=== PATIENT | female | born 1995 | race Caucasian/White ===

== ENCOUNTER 2017-11-08 15:04 | Emergency (ER) | payer BC ==
[2017-11-08] MEDS ORDERED: NS 0.9% 1000 ML* 2,000 ML IV ONE (15:10)
--- NOTE | 2017-11-08 15:31 | ED ---
Complex/Multi-Sys Presentation - HPI Summary HPI Summary: 21 year old F presenting to [facility] after pt was a "CAT" call on PACU where pt was working, is accompanied by female coworker, complains of sharp left sided chest pain since this morning. Per Dr. Hauser, present at CAT call, pt had HR up to 170, and was hypertensive while at work. Symptoms aggravated by nothing. Symptoms alleviated by nothing. Patient reports hx enlarged thyroid (Grave's disease), hypertension, headache, shortness of breath, shakiness. Patient denies bilateral calf pain or hx DVT, PE. Patient has hx Grave's disease and was on treatment with presumed methimazole with her bench molder. She stopped her medication several weeks ago d/t hypothyroidism secondary to medication. Patient sees Dr. Rangel, bench molder at [facility], with whom patient is supposed to have follow up appointment on 11/21/17. LNMP 3 months ago. Patient takes control continuously. She is allergic to propanolol ( hives), states she can take metoprolol. Home Medications Medication Instructions Recorded Confirmed Type Levonorgestrel-Ethin Estradiol 1 tab PO DAILY 11/08/17 11/08/17 History [Marlissa-28 Tablet] - History Of Current Complaint Chief Complaint: EDGeneral Hx Obtained From: Patient, Other: - Dr. Hauser, after CAT call Onset/Duration: Sudden Onset, Lasting Hours - this morning, Still Present Timing: Constant Severity Currently: Moderate Severity Initially: Severe Character: Sharp Aggravating Factor(s): Nothing Alleviating Factor(s): Nothing Associated Signs And Symptoms: Positive: SOB, Chest Pain, Palpitations, Other - enlarged thyroid, hypertension, tachycardia, headache, shortness of breath, shakiness; NEGATIVE: bilateral calf pain Related History: Similar Episode/Diagnosed As: - hyperthyroidism - Allergies/Home Medications Allergies/Adverse Reactions: Allergies Allergy/AdvReac Type Severity Reaction Status Date / Time propanolol Allergy Hives Uncoded 11/08/17 15:05 Home Medications: Home Medications Levonorgestrel-Ethin Estradiol [Marlissa-28 Tablet] 1 tab PO DAILY 11/08/17 [ History Confirmed 11/08/17] PMH/Surg Hx/FS Hx/Imm Hx Previously Healthy: No Endocrine/Hematology History: Reports: Other Endocrine/Hematological Disorders - Grave's disease, HYPOthyrodism after RX for Grave's Cardiovascular History: Denies: Hx Deep Vein Thrombosis, Hx Embolism - Surgical History Surgery Procedure, Year, and Place: L hip surg for labral tear Infectious Disease History: No Infectious Disease History: Denies: Traveled Outside the [place] in Last 30 Days - Family History Known Family History: Positive: Other - POS: hypothyroidism, twin sister with Grave's disease; NEG: PE - Social History Occupation: Employed Full-time Alcohol Use: None Hx Substance Use: No Substance Use Type: Reports: None Hx Tobacco Use: No Smoking Status (MU): Never Smoked Tobacco Review of Systems Positive: Other - enlarged thyroid, HTN, shakiness Positive: Chest Pain - sharp, left sided Positive: Shortness Of Breath Gastrointestinal: Negative Musculoskeletal: Negative - bilateral calf pain Skin: Negative Positive: Headache Psychological: Normal All Other Systems Reviewed And Are Negative: Yes Physical Exam - Summary Physical Exam Summary: Appearance: Well-appearing, no pain distress, well-nourished, tachycardic, hypertensive on monitor Skin: Warm, color reflects adequate perfusion, dry Head: Normal Head/Face inspection, atraumatic Eyes: Conjunctiva clear ENT: Normal inspection Neck: Supple, no nodes, no JVD, palpable thyroid that is non-tender Respiratory: Lungs clear, normal breath sounds, no respiratory distress Cardio: Tachycardic, No murmur, pulses normal, brisk capillary refill Abdomen: Soft, nontender Bowel sounds: Present Musculoskeletal: Strength Intact/ROM intact, no calf tenderness, no edema. Psychological: Normal Neuro: Alert, muscle tone normal, no focal deficit Triage Information Reviewed: Yes Vital Signs On Initial Exam: Initial Vitals Temp Pulse Resp BP Pulse Ox 99.5 F 146 24 158/98 100 11/08/17 15:05 11/08/17 15:05 11/08/17 15:05 11/08/17 15:05 11/08/17 15:05 Vital Signs Reviewed: Yes Diagnostics - Vital Signs Vital Signs Temp Pulse Resp BP Pulse Ox 11/08/17 15:05 99.5 F 146 24 158/98 100 - Laboratory Result Diagrams: 11/08/17 15:46 11/08/17 15:46 Lab Statement: Any lab studies that have been ordered have been reviewed, and results considered in the medical decision making process. - EKG 1533 Cardiac Rate: Tachycardia - 119 BPM EKG Rhythm: Sinus Tachycardia ST Segment: Non-Specific Ectopy: None EKG Interpretation: Nml AV/IV CT, nml QTc, nml axis. No actue changes Re-Evaluation - Re-Evaluation First Eval Re-Evaluation Time: 15:43 Change: Improved Comment: Patient's heart rate is down to 119. Second Eval Re-Evaluation Time: 18:53 Change: Unchanged Comment: Patient feels fine and is agreeable to go home. She will be discharged with a work release note. Pt still tachycardic but feels much better and will start methimazole CARY. Complex Multi-Symp Course/Dx Course Of Treatment: Medications reviewed this visit. Allergies noted. Bloodwork obtained. Aware of lactic acid 2.6 at 1627. Pt noted with hyperthroidism on labs. TSH = 0. Patient given IV fluids in ED course. Spoke with Dr. Johnson, bench molder fashion artist at [facility] at 1712, who advises to re -start patient on thyroid medication. She will be discharged with a prescription for Tapazole 15mg qd and instructions to return to ER for new or worsening symptoms. - Diagnoses Differential Diagnoses/HQI/PQRI: Metabolic Abnormality, Other - SVT, afib Provider Diagnoses: Hyperthyroidism, Graves disease, Tachycardia, Hypertension Discharge - Sign-Out/Discharge Documenting (check all that apply): Patient Departure - Discharge - Discharge Plan Condition: Stable Disposition: HOME Prescriptions: Methimazole TAB* [Tapazole TAB*] 15 mg PO DAILY #90 tab Patient Education Materials: Hyperthyroidism (ED), Graves Disease (ED) Forms: *Work Release Referrals: employee [facility] [Z.BUSINESS, APPLICATION, OTHER] - Juan Carlos GONZALEZ,Sho Velásquez [Medical Doctor] - Additional Instructions: You are hyperthyroid today based on labs and your symptoms. We talked to Dr. Johnson, the bench molder covering for Dr. Phelan. He recommended that you restart your methimazole, and we have sent a RX for this to the [facility] pharmacy in [place], [place]. RETURN TO THE EMERGENCY DEPARTMENT FOR CHANGING OR WORSENING SYMPTOMS - Billing Disposition and Condition Condition: STABLE Disposition: Home
[2017-11-08 15:59] LABS: ABS Basophils 0.1 10^3/ul (0-0.2); ABS Eosinophils 0.1 10^3/ul (0-0.6); ABS Lymphocytes 2.3 10^3/ul (1.0-4.8); ABS Monocytes 0.9 10^3/ul (0-0.8); ABS Neutrophils 8.8 10^3/ul (1.5-7.7); ABS Nucleated RBC 0 10^3/ul; Eosinophil % 0.8 % (0-6); Hematocrit 40 % (35-47); Hemoglobin 13.2 g/dl (12.0-16.0); Lymphocyte % 18.5 % (25-47); Mean Corpuscular HGB Conc 33 g/dl (31-36); Mean Corpuscular Hemoglobin 29 pg (27-31); Mean Corpuscular Volume 87 fL (80-97); Mean Platelet Volume 7.1 um3 (7.4-10.4); Nucleated Red Blood Cells % 0.1; Platelet Count 343 10^3/ul (150-450); Red Blood Count 4.57 10^6/ul (4.00-5.40); Red Cell Distribution Width 13 % (10.5-15); White Blood Count 12.2 10^3/ul (3.5-10.8)
[2017-11-08 16:22] LABS: INR 0.86 (0.77-1.02)
[2017-11-08 19:11] VITALS: BP 144/104
== END 2017-11-08 19:11 | disposition home or self-care (01) ==
LOC: ED 15:04
DX: E05.00 Thyrotoxicosis with diffuse goiter without thyrotoxic crisis or storm (principal); R00.0 Tachycardia, unspecified; I10 Essential (primary) hypertension; Z86.718 Personal history of other venous thrombosis and embolism; Z86.711 Personal history of pulmonary embolism; Z79.899 Other long term (current) drug therapy
CPT/HCPCS: 36415; 80053; 83605; 84436; 84439; 84443; 84481; 84484; 84702; 85025; 85610; 86140; 93005; 96360; 96361; 99283

== ENCOUNTER 2018-05-21 09:27 | Emergency (ER) | payer BC, OTHER ==
[2018-05-21 10:16] LABS: ABS Basophils 0 10^3/ul (0-0.2); ABS Eosinophils 0.1 10^3/ul (0-0.6); ABS Lymphocytes 1.3 10^3/ul (1.0-4.8); ABS Monocytes 0.4 10^3/ul (0-0.8); ABS Neutrophils 9.2 10^3/ul (1.5-7.7); ABS Nucleated RBC 0 10^3/ul; Eosinophil % 0.5 %; Hematocrit 41 % (35-47); Hemoglobin 13.8 g/dl (12.0-16.0); Lymphocyte % 11.8 %; Mean Corpuscular HGB Conc 34 g/dl (31-36); Mean Corpuscular Hemoglobin 30 pg (27-31); Mean Corpuscular Volume 88 fL (80-97); Mean Platelet Volume 7.1 fL (7.4-10.4); Nucleated Red Blood Cells % 0; Platelet Count 355 10^3/ul (150-450); Red Blood Count 4.61 10^6/ul (4.00-5.40); Red Cell Distribution Width 12 % (10.5-15)
[2018-05-21 10:39] LABS: ALT 20 U/L (7-52); AST 24 U/L (13-39); Albumin 4.1 g/dL (3.2-5.2); Albumin/Globulin Ratio 1.2 (1-3); Alkaline Phosphatase 57 U/L (34-104); Anion Gap 8 mmol/L (2-11); BUN/Creatinine Ratio 12.8 (8-20); Blood Urea Nitrogen 10 mg/dL (6-24); CO2 Carbon Dioxide 25 mmol/L (22-32); Calcium 9.1 mg/dL (8.6-10.3); Chloride 104 mmol/L (101-111); EGFR African American 109.8 (>60); EGFR Non-African American 90.7 (>60); Globulin 3.3 g/dL (2-4); Glucose 85 mg/dL (70-100); Potassium 3.7 mmol/L (3.5-5.0); Sodium 137 mmol/L (135-145); Total Protein 7.4 g/dL (6.4-8.9)
[2018-05-21 10:44] LABS: HCG Pregnancy < 0.60 mIU/mL
--- NOTE | 2018-05-21 11:07 | ED ---
- HPI Summary HPI Summary: [id number] patient presents with injury to right hand prior to arrival. She works in the OR and during an ortho case, she accidentally cut her right thenar eminence with a bone saw after use on pt. This went to through 2 sets of gloves. She did have minor bleeding and cleaned her wound with Betadine immediately. Bleeding has stopped. She is unsure of the patient's HIV /hepatitis C status but has the patient's name *(will identify medical record number). This patient has no history of hepatitis or HIV and hepatitis B vaccine is up-to-date. She reports tetanus is also up-to-date. Hand itself is a minor injury she does not report any pain, numbness, tingling, weakness. She is here for evaluation based on protocol of exposure. Periods have been normal. Takes oral control. Low risk of . - History of Current Complaint Chief Complaint: EDExtremityUpper Stated Complaint: LAC ON RIGHT HAND/EXPOSURE Time Seen by Provider: 05/21/18 09:56 PMH/Surg Hx/FS Hx/Imm Hx Previously Healthy: Yes Endocrine/Hematology History: Reports: Other Endocrine/Hematological Disorders - Grave's disease, HYPOthyrodism after RX for Grave's Cardiovascular History: Denies: Hx Deep Vein Thrombosis, Hx Embolism Sensory History: Reports: Hx Contacts or Glasses Opthamlomology History: Reports: Hx Contacts or Glasses - Surgical History Surgery Procedure, Year, and Place: L hip surg for labral tear - Immunization History Immunizations Up to Date: Yes Infectious Disease History: No Infectious Disease History: Denies: Hx of Known/Suspected MRSA, Traveled Outside the [place] in Last 30 Days - Family History Known Family History: Positive: Other - POS: hypothyroidism, twin sister with Grave's disease; NEG: PE - Social History Occupation: Employed Full-time Alcohol Use: None Hx Substance Use: No Substance Use Type: Reports: None Hx Tobacco Use: No Smoking Status (MU): Never Smoked Tobacco Review of Systems Constitutional: Negative Positive: no symptoms reported Musculoskeletal: Negative Skin: Other - superficial laceration Neurological: Negative Psychological: Normal All Other Systems Reviewed And Are Negative: Yes Physical Exam Triage Information Reviewed: Yes Vital Signs On Initial Exam: Initial Vitals Temp Pulse Resp BP Pulse Ox 98.0 F 80 14 143/99 100 05/21/18 09:28 05/21/18 09:28 05/21/18 09:28 05/21/18 09:28 05/21/18 09:28 Vital Signs Reviewed: Yes Appearance: Positive: Well-Appearing, No Pain Distress, Well-Nourished Skin: Positive: Warm, Skin Color Reflects Adequate Perfusion, Dry - linear superficial laceration 3cm x 1.5mm over Rt thenar eminence - no active bleeding - no subcutaneous tissue observed - clean Head/Face: Positive: Normal Head/Face Inspection Eyes: Positive: EOMI ENT: Positive: Hearing grossly normal Respiratory/Lung Sounds: Positive: Breath Sounds Present Cardiovascular: Positive: Pulses are Symmetrical in both Upper and Lower Extremities Musculoskeletal: Positive: Normal, Strength/ROM Intact Neurological: Positive: Normal, Sensory/Motor Intact, Alert, Oriented to Person Place, Time, CN Intact II-III Psychiatric: Positive: Normal Diagnostics - Vital Signs Vital Signs Temp Pulse Resp BP Pulse Ox 05/21/18 09:28 98.0 F 80 14 143/99 100 - Laboratory Lab Results: Lab Results 05/21/18 05/21/18 Range/Units 10:07 10:07 WBC 11.0 H (3.5-10.8) 10^3/ul RBC 4.61 (4.00-5.40) 10^6/ul Hgb 13.8 (12.0-16.0) g/dl Hct 41 (35-47) % MCV 88 (80-97) fL MCH 30 (27-31) pg MCHC 34 (31-36) g/dl RDW 12 (10.5-15) % Plt Count 355 (150-450) 10^3/ul MPV 7.1 L (7.4-10.4) fL Neut % (Auto) 83.6 % Lymph % (Auto) 11.8 % [place] % (Auto) 3.7 % Eos % (Auto) 0.5 % Baso % (Auto) 0.4 % Absolute Neuts (auto) 9.2 H (1.5-7.7) 10^3/ul Absolute Lymphs (auto) 1.3 (1.0-4.8) 10^3/ul Absolute Monos (auto) 0.4 (0-0.8) 10^3/ul Absolute Eos (auto) 0.1 (0-0.6) 10^3/ul Absolute Basos (auto) 0 (0-0.2) 10^3/ul Absolute Nucleated RBC 0 10^3/ul Nucleated RBC % 0 Sodium 137 (135-145) mmol/L Potassium 3.7 (3.5-5.0) mmol/L Chloride 104 (101-111) mmol/L Carbon Dioxide 25 (22-32) mmol/L Anion Gap 8 (2-11) mmol/L BUN 10 (6-24) mg/dL Creatinine 0.78 (0.51-0.95) mg/dL Est GFR ( Amer) 109.8 (>60) Est GFR (Non-Af Amer) 90.7 (>60) BUN/Creatinine Ratio 12.8 (8-20) Glucose 85 (70-100) mg/dL Calcium 9.1 (8.6-10.3) mg/dL Total Bilirubin 1.00 (0.2-1.0) mg/dL AST 24 (13-39) U/L ALT 20 (7-52) U/L Alkaline Phosphatase 57 (34-104) U/L Total Protein 7.4 (6.4-8.9) g/dL Albumin 4.1 (3.2-5.2) g/dL Globulin 3.3 (2-4) g/dL Albumin/Globulin Ratio 1.2 (1-3) Beta HCG, Quant < 0.60 mIU/mL Result Diagrams: 05/21/18 10:07 05/21/18 10:07 Lab Statement: Any lab studies that have been ordered have been reviewed, and results considered in the medical decision making process. [place] Course/Dx - Course Course Of Treatment: Pt consented to labs today including baseline Hep and HIV. Attempted to contact source pt who was under anesthesia at time of injury - she was reached and agreed to testing at 11:55am. Explained to pt her type of injury is fairly low risk and that she could wait for results from source pt or we can call her w/ results later today. Pt would like to start first dose of PEP (reviewed potential side effects) and will proceed with tx based on outcomes of source pt results. Wound itself appears minor and reviewed care instructions. Will contact pt later today via her personal phone - if unable to reach, will call her department to speak directly with her. *If high risk, pt will return to ED for remainder of PEP meds and will send to pharmacy. Will also recommend f/u testing w/ Dr. Lombardo. Pt agrees w/ plan. UPDATE: per nursing, pt's source pt is neg. Explained risk to pt who declines further tx with PEP. She does not want to get repeat testing in 3 months so will f/u w/ Dr. Lombardo. No further meds necessary at this time. - Diagnoses Provider Diagnoses: Employee exposure to body fluids, Laceration of right hand Discharge - Sign-Out/Discharge Documenting (check all that apply): Patient Departure - Discharge Plan Condition: Stable Disposition: HOME Patient Education Materials: Postexposure Prophylaxis (ED), Laceration Without Closure (ED) Referrals: Sosa GONZALEZ,Juan Machado [Medical Doctor] - Additional Instructions: Gently wash wound with soap and water, rinse well and pat dry with clean cloth. Reapply triple antibiotic ointment and clean gauze dressing. Continue this daily until wound heals. You may rest, ice, elevate and take acetaminophen and/or ibuprofen for pain/ swelling. * If you develop redness, swelling, streaking, purulent drainage, fevers or chills, seek medical attention sooner or return to the emergency department. For body fluid exposure, you were prescribed 2 x dose of Truvada and Isentress here today. If your case appears to be high risk, will continue this treatment and have you follow-up with Dr. Lombardo, infectious disease specialist. - Billing Disposition and Condition Condition: STABLE Disposition: Home
[2018-05-21 11:20] LABS: Rapid HIV 1 Nonreactive (Nonreactive)
[2018-05-21 11:35] LABS: Hepatitis B Surface AB Immune (Immune)
[2018-05-21] MEDS ORDERED: Raltegravir* 400 MG TAB PO ONE (11:37)
[2018-05-21] MEDS ORDERED: Tenofovir/Emtricitab 200/300 * TAB PO ONE (11:37)
[2018-05-21 11:45] LABS: Hepatitis B Surface Antigen Nonreactive (Nonreactive)
[2018-05-21 12:12] LABS: Hepatitis C Antibody Nonreactive (Nonreactive)
[2018-05-21 12:14] VITALS: BP 138/83
== END 2018-05-21 12:12 | disposition home or self-care (01) ==
LOC: ED 09:27
DX: S61.411A Laceration without foreign body of right hand, initial encounter (principal); Z77.21 Contact with and (suspected) exposure to potentially hazardous body fluids; W27.8XXA Contact with other nonpowered hand tool, initial encounter; Y92.234 Operating room of hospital as the place of occurrence of the external cause; Y99.0 Civilian activity done for income or pay; E05.00 Thyrotoxicosis with diffuse goiter without thyrotoxic crisis or storm
CPT/HCPCS: 36415; 80053; 84702; 85025; 86703; 86706; 86803; 87340; 99282

== ENCOUNTER 2018-11-17 15:06 | Emergency (ER) | payer BC, OTHER ==
--- NOTE | 2018-11-17 15:19 | UC ---
Lower Extremity/Ankle HPI - HPI Summary HPI Summary: 22 year old female presents with foot pain and urinary symptoms Urine symptoms- Pain with urinary, urinary frequency. Not diagnosed, but patient believes it is a UTI. symptoms x 2 days, no fever, chills, no flank pain. no hematuria, + cloudy urine Right foot- Pain at top of foot, patient states has been going on for 3 weeks, pain at top of foot. Treated with motrin/ naproxen without benefit. Continues to hike, walk, however painful. Improved with resting. no swelling , no bruising. no Prior or current injuries/ trauma. - History of Current Complaint Stated Complaint: UTI AND FOOT PAIN Time Seen by Provider: 11/17/18 15:15 Hx Obtained From: Patient Hx Last Menstrual Period: bc ?: No Onset/Duration: Sudden Onset Severity Initially: Moderate Severity Currently: Moderate Aggravating Factor(s): Standing, Ambulation Alleviating Factor(s): Rest, Elevation Able to Bear Weight: Yes - Allergies/Home Medications Allergies/Adverse Reactions: Allergies Allergy/AdvReac Type Severity Reaction Status Date / Time propranolol [From Hemangeol] Allergy Hives Verified 11/17/18 15:21 propanalol Allergy Hives Uncoded 11/17/18 15:21 Home Medications: Home Medications Ibuprofen TAB* [Motrin TAB* 400 MG] 400 mg PO Q6H 11/17/18 [History Confirmed ] Naproxen Sodium [Aleve] 440 mg PO BID 11/17/18 [History Confirmed 11/17/18] PMH/Surg Hx/FS Hx/Imm Hx Previously Healthy: Yes - Surgical History Surgical History: Yes Surgery Procedure, Year, and Place: hip left side - Family History Known Family History: Positive: Other - POS: hypothyroidism, twin sister with Grave's disease; NEG: PE, Non-Contributory - Social History Alcohol Use: Occasionally Substance Use Type: None Smoking Status (MU): Never Smoked Tobacco Review of Systems All Other Systems Reviewed And Are Negative: Yes Genitourinary: Positive: Dysuria, Frequency, Urgency. Negative: Hematuria Motor: Positive: Decreased ROM Musculoskeletal: Positive: Arthralgia, Myalgia Is Patient Immunocompromised?: No Physical Exam Triage Information Reviewed: Yes Appearance: Well-Appearing, No Pain Distress, Well-Nourished Vital Signs Reviewed: Yes Eyes: Positive: Conjunctiva Clear ENT: Positive: Hearing grossly normal Abdomen Description: Positive: No Organomegaly, Soft, Other: - minimal suprapubic tenderness. Negative: CVA Tenderness (R), CVA Tenderness (L), Distended, Guarding, Splenomegaly Musculoskeletal: Positive: Strength Intact, ROM Intact, No Edema - right foot, Other: - minimal tenderness to palpation over proximal first metatarsal, nor involving joint line, no edema, bruising, full ROM great toe without pain. PT , PD 2+, neg homans full ankle PROM without pain Neurological Exam: Normal Psychological Exam: Normal Skin Exam: Normal Lower Extremity Course/Dx - Course Course Of Treatment: Foot tendonitis - radiograph negative for fracture. Continue Naproxen 500mg every 12 hours for 5-7 days to decrease swelling, use post-op shoe of sole of shoe that does not bend x 1 week. If no improvement, follow up with orthopedics. - Decrease ambulation/ no hiking until improved. UTI - Antibiotics as given x 3 days - Follow up with primary physician in 2-3 days if no improvement - GO to ER with fever, chills, increased pain, back pain - Increase fluid intake - Tylenol/ motrin as needed for pain - Differential Dx/Diagnosis Differential Diagnosis/HQI/PQRI: Fracture (Closed), Fracture (Open), Sprain, Strain, Tendonitis, Tenosynovitis Provider Diagnosis: Tendonitis of foot, UTI (urinary tract infection) Discharge - Sign-Out/Discharge Documenting (check all that apply): Patient Departure All imaging exams completed and their final reports reviewed: Yes - Discharge Plan Condition: Good Disposition: HOME Prescriptions: Sulfamethox/Trimethoprim DS* [Bactrim DS 800/160 TAB*] 1 tab PO BID #6 tab Patient Education Materials: Urinary Tract Infection in Women (DC), Tenosynovitis (ED) Referrals: No Primary Care Phys,NOPCP [Primary Care Provider] - Additional Instructions: Foot tendonitis - radiograph negative for fracture. Continue Naproxen 500mg every 12 hours for 5-7 days to decrease swelling, use post-op shoe of sole of shoe that does not bend x 1 week. If no improvement, follow up with orthopedics. - Decrease ambulation/ no hiking until improved. UTI - Antibiotics as given x 3 days - Follow up with primary physician in 2-3 days if no improvement - GO to ER with fever, chills, increased pain, back pain - Increase fluid intake - Tylenol/ motrin as needed for pain - Billing Disposition and Condition Condition: GOOD Disposition: Home
[2018-11-17 15:21] VITALS: BP 141/96
== END 2018-11-17 16:11 | disposition home or self-care (01) ==
LOC: UCEAST 15:06
DX: N39.0 Urinary tract infection, site not specified (principal); M77.51 Other enthesopathy of right foot and ankle
CPT/HCPCS: 81002; 81025; 87086; 99212; G0463

== ENCOUNTER 2019-10-28 10:05 | Observation (INO) ==
[~2019-10-28 10:05] MED LIST: Buffered Lidocaine 1% SYRIN 1 ml INTRADERM ONE; Dexamethasone IV 4 MG/ML VIAL 1 ml VIAL IV SLOW PU ONE; EPHEDrine (Pressors) 50 MG/ML VIAL ONE; Famotidine IV 10 MG/ML 2 ml VIAL (20 mg) IV ONE; Lactated Ringers 1000 ml BAG 1,000 ML IV SCH; Levalbuterol 1.25MG/0.5ML NEB.SOL INH ONE; Lidocaine 2% PF 5 ML VIAL ONE; Metoclopramide 5 MG/ML VIAL (10 mg) ONE; Midazolam 2 mg/2 ml VIAL 1 mg/ml 2 ml VIAL (2 mg) ONE; Ondansetron 4 mg VIAL 2 MG/ML 2 ml VIAL ONE; Propofol 10 MG/ML 20 ML BTL ONE; Succinylcholine 200 mg VIAL 20 mg/ml 10 ml VIAL (200 mg) ONE; fentaNYL 250 mcg/5 ml 50 MCG/ML 5 ml VIAL (250 MCG) ONE
[2019-10-28] MEDS ORDERED: Dexamethasone IV 4 MG/ML VIAL 1 ml VIAL ONE (10:41)
[2019-10-28] MEDS ORDERED: Famotidine IV 10 MG/ML 2 ml VIAL (20 mg) ONE (10:42)
[2019-10-28] MEDS ORDERED: Levalbuterol 1.25MG/0.5ML NEB.SOL ONE (10:42)
[2019-10-28] MEDS ORDERED: Lidocaine 1% w EPI 1:100,000 MDV 20 ML VIAL ONE (11:06)
[2019-10-28] MEDS ORDERED: Midazolam 2 mg/2 ml VIAL 1 mg/ml 2 ml VIAL (2 mg) ONE (11:45)
[2019-10-28] MEDS ORDERED: Lidocaine 2% JELLY 6 ML TOPICAL ONE (11:48)
[2019-10-28] MEDS ORDERED: DiMENhydriNATE IV 50 mg/ml 1 ml VIAL IV PUSH PRN (13:17)
[2019-10-28] MEDS ORDERED: HYDROmorphone 1 MG/1 ML SYRINGE IV PRN (13:17)
[2019-10-28] MEDS ORDERED: Naloxone 0.4 mg VIAL 0.4 mg/ml 1 ml VIAL IV PRN (13:17)
[2019-10-28] MEDS ORDERED: Ondansetron 4 mg VIAL 2 MG/ML 2 ml VIAL IV PRN ×2 (13:17→17:26)
[2019-10-28] MEDS ORDERED: Acetaminophen IV 1 GM/100ML 1,000 MG/100 ML VIAL IVPB ONE (13:17)
[2019-10-28] MEDS ORDERED: HYDROmorphone 1 MG/1 ML SYRINGE ONE (14:07)
[2019-10-28] MEDS ORDERED: fentaNYL 100 mcg/2 ml 50 MCG/ML VIAL ONE (15:06)
[2019-10-28] MEDS: fentaNYL 100 mcg/2 ml 50 MCG/ML VIAL IV PRN ×2 (15:08→15:12)
[2019-10-28] MEDS ORDERED: Albuterol 2.5mg/3 ml (0.083%) NEB.SOLN INH PRN (15:45)
[2019-10-28] MEDS ORDERED: Ondansetron ODT 4 mg TAB 4 MG TAB PO PRN (17:24)
[2019-10-28] MEDS ORDERED: Ondansetron 4 mg VIAL 2 MG/ML 2 ml VIAL IM PRN (17:25)
[2019-10-28] MEDS ORDERED: Lactated Ringers 1000 ml BAG 1,000 ML IV ONE (18:00)
[2019-10-28] MEDS: Benzocaine/Menthol LOZ PO PRN (19:48)
[2019-10-28] MEDS: Calcium Carb 1250 mg TAB (500 mg elemental calcium) PO SCH (19:48)
[2019-10-29] MEDS: Benzocaine/Menthol LOZ PO PRN ×2 (02:40→08:25)
[2019-10-29 07:39] VITALS: BP 123/57
[2019-10-29] MEDS: Calcium Carb 1250 mg TAB (500 mg elemental calcium) PO SCH (08:21)
== END 2019-10-29 11:20 | disposition home or self-care (01) ==
LOC: MEDTELE 10:05 → OR 10:05
PROVIDERS: ADMIT Internal Medicine; ATTEND Otolaryngology